=== PATIENT | female | born 1965 | race Asian ===

== ENCOUNTER 2021-10-16 14:25 | Emergency (ER) | payer OTHER ==
[~2021-10-16] VITALS: Ht 147.3 cm; Wt 52.2 kg
--- NOTE | 2021-10-16 15:22 | NUR ---
BIBS W/ C/O RLE PAIN S/P DOG BITE WHILE AT WORK; TDAP NOT UTD PER PT. TO CHAIR 1.
--- NOTE | 2021-10-16 15:25 | NUR ---
PT SEEN BY DR PETERSON FOR EVAL
[2021-10-16] MEDS ORDERED: TDAP [DIPH/PERTUSSIS/TET] 0.5 ML VIAL IM ONE ×2 (15:30→15:40)
--- NOTE | 2021-10-16 15:50 | NUR ---
TDAP given on Left deltoid.
--- NOTE | 2021-10-16 15:55 | NUR ---
Patient discharged to home in stable condition. Written and verbal after care instructions given. Patient verbalizes understanding of instruction.
[2021-10-16 15:56] VITALS: BP 127/75
== END 2021-10-16 15:57 | disposition home or self-care (01) ==
LOC: ER 14:27
DX: S81.851A Open bite, right lower leg, initial encounter (principal); W54.0XXA Bitten by dog, initial encounter; Y93.89 Activity, other specified; Y92.89 Other specified places as the place of occurrence of the external cause; Y99.8 Other external cause status
CPT/HCPCS: 90715